=== PATIENT | female | born 1995 | race Caucasian/White ===

== ENCOUNTER 2021-01-25 12:10 | Emergency (ER) | payer BC ==
[~2021-01-25] VITALS: Ht 165.1 cm; Wt 94.3 kg
[2021-01-25 12:15] VITALS: BP_SYST 120
[2021-01-25 12:44] LABS: BILIRUBIN,URINE NEGATIVE (NEGATIVE); BLOOD, URINE NEGATIVE (NEGATIVE); CLARITY/URINE CLEAR (CLEAR); COLOR,URINE YELLOW (YELLOW); GLUCOSE,URINE NEGATIVE (NEGATIVE); KETONES,URINE NEGATIVE (NEGATIVE); LEUKOCYTE ESTERASE ,URINE NEGATIVE (NEGATIVE); NITRITE, URINE NEGATIVE (NEGATIVE); PROTEIN URINE NEGATIVE (NEGATIVE); UROBILINOGEN,URINE 0.2 (0.2-1.0)
[2021-01-25 12:56] LABS: BASOPHILS # (AUTO) 0.1 K/uL (0.0-0.2); BASOPHILS % (AUTO) 0.7 % (0.0-2.0); EOSINOPHILS # (AUTO) 0.3 K/uL (0.0-0.4); EOSINOPHILS % (AUTO) 3.8 % (0.0-4.0); HEMATOCRIT 41.3 % (36-48); HEMOGLOBIN 13.8 g/dL (12.0-16.0); LYMPHOCYTES # (AUTO) 1.7 K/uL (1.0-5.5); LYMPHOCYTES % (AUTO) 18.7 % (20.5-51.5); MEAN CORPUSCULAR HEMOGLOBIN 28 pg (27-31); MEAN CORPUSCULAR HGB CONC 34 % (32-36); MEAN CORPUSCULAR VOLUME 85 fL (79.0-98.0); MONOCYTES # (AUTO) 0.5 K/uL (0.0-1.0); MONOCYTES % (AUTO) 5.7 % (1.7-9.3); NEUTROPHILS # (AUTO) 6.5 K/uL (1.8-7.7); NEUTROPHILS % (AUTO) 71.1 % (40.0-70.0); PLATELET COUNT (AUTO) 257 K/uL (130-430); RED BLOOD CELL COUNT(AUTO) 4.86 MIL/uL (4.2-6.2); RED CELL DISTRIBUTION WIDTH 13.9 % (9.0-15.0); WHITE BLOOD COUNT (AUTO) 9.1 K/uL (4.8-10.8)
[2021-01-25 13:28] LABS: CALCIUM 8.4 mg/dL (8.4-11.0); CREATININE 0.67 mg/dL (0.55-1.30); POTASSIUM 3.9 mmol/L (3.5-5.1)
[2021-01-25 13:33] LABS: INR 0.9 (0.8-1.2); PROTHROMBIN TIME 9.6 SECS (9.5-12.5)
[2021-01-25 13:34] LABS: ALBUMIN 3.6 g/dL (3.4-4.8); TOTAL BILIRUBIN 0.8 mg/dL (0.0-1.0)
[2021-01-25 13:36] LABS: C-REACTIVE PROTEIN QUANT 1.4 mg/dL (0-0.5)
[2021-01-25] MEDS ORDERED: HYDR-3917 PO (14:44)
[2021-01-25] MEDS ORDERED: IBUP-1969 PO (14:44)
[2021-01-25 15:08] VITALS: BP_SYST 120
== END 2021-01-25 15:08 | disposition home or self-care (01) ==
LOC: SED 12:10
DX: N83.202 Unspecified ovarian cyst, left side (principal)
CPT/HCPCS: 36415; 76376; 80053; 81003; 82150; 83605; 83690; 84703; 85025; 85610-TC; 85730-TC; 86140; 99285

== ENCOUNTER 2021-01-27 16:09 | Emergency (ER) | payer BC ==
[~2021-01-27] VITALS: Ht 165.1 cm; Wt 94.3 kg
[~2021-01-27 16:09] MED LIST: HYDR-3917 PO; IBUP-1969 PO
[2021-01-27 16:17] VITALS: BP_SYST 115
[2021-01-27] MEDS ORDERED: KETOROLAC TROMETHAMINE 30 MG VIAL IM ONE (16:30)
[2021-01-27] MEDS ORDERED: NAPR-690 PO (18:28)
[2021-01-27] MEDS ORDERED: ONDA-8 TL (18:28)
[2021-01-27] MEDS ORDERED: CEPH500C2 PO (18:38)
[2021-01-27 18:45] VITALS: BP_SYST 121
== END 2021-01-27 18:45 | disposition home or self-care (01) ==
LOC: SED 16:09
DX: N39.0 Urinary tract infection, site not specified (principal); N83.202 Unspecified ovarian cyst, left side; Z88.0 Allergy status to penicillin; Z79.899 Other long term (current) drug therapy
CPT/HCPCS: 76856; 81025; 96372; 99284; J1885